=== PATIENT | female | born 1980 | race Caucasian/White ===

== ENCOUNTER 2019-02-26 13:42 | Emergency (ER) | payer MEDICAID ==
[~2019-02-26] VITALS: Ht 167.6 cm; Wt 76.7 kg
[2019-02-26 15:04] VITALS: Ht 167.6 cm; Wt 76.7 kg
[2019-02-26 18:07] VITALS: BP 113/72
== END 2019-02-26 18:08 | disposition home or self-care (01) ==
LOC: ED 13:42
DX: J11.1 Influenza due to unidentified influenza virus with other respiratory manifestations (principal); R07.89 Other chest pain; R11.2 Nausea with vomiting, unspecified; R50.9 Fever, unspecified; R30.0 Dysuria; R06.02 Shortness of breath; R05 Cough; M79.10 Myalgia, unspecified site; Z98.890 Other specified postprocedural states
CPT/HCPCS: J1885; J2405